=== PATIENT | female | born 1975 | race Caucasian/White ===

== ENCOUNTER 2017-04-05 18:01 | Emergency (ER) | payer OTHER ==
[~2017-04-05] VITALS: Ht 160 cm; Wt 65.8 kg
== END 2017-04-05 22:17 | disposition home or self-care (01) ==
LOC: ER 18:01
DX: S00.83XA Contusion of other part of head, initial encounter (principal); S80.01XA Contusion of right knee, initial encounter; S30.0XXA Contusion of lower back and pelvis, initial encounter; V49.9XXA Car occupant (driver) (passenger) injured in unspecified traffic accident, initial encounter; Y93.89 Activity, other specified; Y92.488 Other paved roadways as the place of occurrence of the external cause; Y99.8 Other external cause status

== ENCOUNTER 2021-10-13 20:06 | Emergency (ER) | payer OTHER ==
[~2021-10-13] VITALS: Ht 157.5 cm; Wt 78.0 kg
[2021-10-13] MEDS ORDERED: MEDROLPACK PO ×2 (21:06→21:20)
== END 2021-10-13 21:21 | disposition home or self-care (01) ==
LOC: ER 20:06
DX: J06.9 Acute upper respiratory infection, unspecified (principal); R06.02 Shortness of breath; R05.9 Cough, unspecified